=== PATIENT | female | born 1955 | race Two or more races ===

== ENCOUNTER 2017-12-22 14:39 | Emergency (ER) | payer OTHER ==
[~2017-12-22] VITALS: Ht 160 cm; Wt 67.1 kg
[2017-12-22] MEDS ORDERED: NKM (14:51)
[2017-12-22 15:22] VITALS: BP 153/83
--- NOTE | 2017-12-22 15:27 | Emergency Room Report ---
History of Present Illness General Chief Complaint: Eye Problems Source: Patient Present Illness HPI 62 yo female patient presents to ER complaining of pain on face x5 days. Reports was at work and was poked in the face by a stick while throwing away garbage. Reports was hit on side of nose near left eye. Reports swelling at site of injury. Reports taking Tylenol and icing eye with some reduction of swelling. Denies eye pain, FB sensation, loss of vision. Denies eye crusting. Denies fever, chest pain, SOB, vomiting. Denies pain with eye movement. Denies PHILIPPE, LOC. Denies bleeding or break in skin. Allergies: Coded Allergies: No Known Allergies (Unverified , 12/22/17) Patient History Past Medical History: see triage record Reviewed Nursing Documentation: PMH: Agreed; PSxH: Agreed Nursing Documentation-PMH Past Medical History: No Stated History Review of Systems All Other Systems: negative except mentioned in HPI Physical Exam Vital Signs Date Time Temp Pulse Resp B/P (MAP) Pulse Ox O2 Delivery O2 Flow Rate FiO2 12/22/17 14:43 98.3 86 16 153/83 95 Room Air 98.2 Sp02 EP Interpretation: reviewed, normal General Appearance: well appearing, no apparent distress, alert, GCS 15, non- toxic Head: normocephalic, atraumatic Eyes: bilateral eye normal inspection, bilateral eye PERRL, bilateral eye EOMI , bilateral eye other - no conjunctival injection ENT: hearing grossly normal, normal pharynx, no angioedema, normal voice, TMs + canals normal, uvula midline, moist mucus membranes, other - no blood in nasal cavity, no blue swollen mass, no drainage Neck: full range of motion Respiratory: lungs clear, normal breath sounds, no rhonchi, no respiratory distress, no accessory muscle use, no wheezing, speaking full sentences Cardiovascular #1: regular rate, rhythm, no edema Musculoskeletal: back normal, digits/nails normal, gait/station normal, normal range of motion, non-tender Neurologic: alert, oriented x3, responsive, motor strength/tone normal, sensory intact Psychiatric: mood/affect normal Skin: other - left eye, medial border adjacent to nasal bridge: ecchymosis, TTP , no kari with pressure Lymphatic: no adenopathy Medical Decision Making PA Attestation Dr. Martinez is my supervising Physician whom patient management has been discussed with. Diagnostic Impression: Primary Impression: Bruise of periocular tissue ER Course Pt. presents to the ED c/o bruising and swelling on the left side of face near eye and nose. Ddx considered but are not limited to periorbital cellulitis, fracture, contusion. Vital signs: are WNL, pt. is afebrile Patient has no signs of surrounding cellulitis, no pain with eye movement, does not require imaging at this time. Low suspicion for periorbital cellulitis See nurses report for [employer]. Followup with manager of environmental services for further testing and treatment. ER COURSE: No evidence of nasal fracture, nose midline. No blood seen in nasal cavity, epistaxis. Does not require imaging at this time. Patient denies complaints of eye pain, pain with eye movement, foreign body sensation, loss of vision. Patient does not require fluoresceins stain of eye at this time. Follow up with orientation and mobility specialist for onset of symptoms. Injury occurred at work. Completed Workmen's Compensation paperwork, patient requesting a few days off from work. Work note provided. Instructed to follow-up with job to receive information for referral to Workmen' s Compensation physician. Informed patient likely contusion. Continue to apply ice to reduce swelling. take Tylenol for pain symptoms. Patient reports understanding and agreement. DISCHARGE: Rx provided for Tylenol At this time pt. is stable for d/c to home. Patient is resting comfortably, in no acute distress, nontoxic appearing, talking and smiling without difficulty. Will provide printed patient care instructions, and any necessary prescriptions. Patient instructed to follow up with log deckman and discuss further follow up with ophthalmology and manager of environmental services. Care plan and follow up instructions have been discussed with the patient prior to discharge. Patient questions asked and answered. Patient reports understanding and agreement to treatment plan. ER precautions given. Patient instructed to return to ER immediately for any new or worsening of symptoms including but not limited to vision loss, fever, changes in vision. Last Vital Signs Date Time Temp Pulse Resp B/P (MAP) Pulse Ox O2 Delivery O2 Flow Rate FiO2 12/22/17 14:43 98.3 86 16 153/83 95 Room Air 98.2 Disposition: HOME, SELF-CARE Condition: Stable Scripts Acetaminophen* (TYLENOL EXTRA STRENGTH*) 500 Mg Tablet 500 MG ORAL Q8H PRN for Prn Headache/Temp > 101, #30 TAB 0 Refills Prov: Wan Gross 12/22/17 Patient Instructions: Eye Contusion Additional Instructions: Followup with primary care provider in 3 -5 days. Followup with orientation and mobility specialist. Take medications as directed. Patient questions asked and answered. ER precautions given, patient instructed to return to ER immediately for any new or worsening of symptoms. Wan Gross Dec 22, 2017 15:27
[2017-12-22] MEDS ORDERED: TYLENOL EXTRA500 MG ORAL (15:29)
[2017-12-22] MEDS ORDERED: Ketorolac 30mg Inj IM ONE (15:30)
[2017-12-22 15:57] VITALS: BP 150/83
== END 2017-12-22 16:00 | disposition home or self-care (01) ==
LOC: EMR 15:30
DX: S00.12XA Contusion of left eyelid and periocular area, initial encounter (principal); W22.8XXA Striking against or struck by other objects, initial encounter; Y93.E9 Activity, other interior property and clothing maintenance; Y92.9 Unspecified place or not applicable
CPT/HCPCS: 96372; 99283; J1885

== ENCOUNTER 2019-01-03 16:06 | Emergency (ER) | payer OTHER ==
[~2019-01-03] VITALS: Ht 157.5 cm; Wt 67.1 kg
[~2019-01-03 16:06] MED LIST: NKM; TYLENOL EXTRA500 MG ORAL
[2019-01-03 16:23] VITALS: BP 137/83
--- NOTE | 2019-01-03 16:45 | Emergency Room Report ---
History of Present Illness General Chief Complaint: Upper Extremity Injury Source: Patient Present Illness HPI 63-year-old female with no significant past medical history here complaining of pain in the right shoulder x1 day after trying to lift something heavy at work yesterday. Reports that she was trying to get something off of a shelf that was heavy and she immediately felt pain in the right shoulder now radiating to right hand and fingers. Rating the pain 6 out of 10 and has taken Tylenol with some relief. Patient range of motion is intact however she is in pain with flexion and extension of her shoulder. Is tingling and numbness. Denies chest pain, back pain, shortness of breath, palpitation, dizziness and headache. Denies fall on outstretched hand and denies fall of an object on her shoulder. Allergies: Coded Allergies: No Known Allergies (Unverified , 12/22/17) Patient History Past Medical History: see triage record Past Surgical History: unable to obtain Pertinent Family History: none Now: No Immunizations: UTD Reviewed Nursing Documentation: PMH: Agreed; PSxH: Agreed Nursing Documentation-PMH Past Medical History: No Stated History Review of Systems All Other Systems: negative except mentioned in HPI Physical Exam Vital Signs Date Time Temp Pulse Resp B/P (MAP) Pulse Ox O2 Delivery O2 Flow Rate FiO2 01/03/19 16:11 98.2 77 20 95 Room Air 01/03/19 16:23 137/83 Sp02 EP Interpretation: reviewed, normal General Appearance: normal inspection, well appearing, no apparent distress, alert Head: normocephalic, atraumatic Eyes: bilateral eye normal inspection, bilateral eye PERRL ENT: normal ENT inspection, normal pharynx Neck: normal inspection, full range of motion, supple Respiratory: normal inspection, lungs clear, no rhonchi, no wheezing Cardiovascular #1: normal inspection, regular rate, rhythm, no murmur Cardiovascular #2: 2+ radial (R), 2+ radial (L) Gastrointestinal: normal inspection, soft Genitourinary: no CVA tenderness Musculoskeletal: digits/nails normal, gait/station normal, non-tender, swelling - right shoulder, pain with cooper and epty can test unable to do drop arm test Neurologic: normal inspection, alert, oriented x3 Psychiatric: normal inspection, judgement/insight normal Skin: normal inspection, normal color, no rash, warm/dry, palpation normal Lymphatic: normal inspection, no adenopathy Medical Decision Making PA Attestation All my diagnosis and treatment plans were reviewed ad discussed with my supervising physician Dr. Kimball Diagnostic Impression: Primary Impression: Strain of right shoulder Additional Impression: Right shoulder tendonitis ER Course 63-year-old female with no significant past medical history here complaining of pain in the right shoulder x1 day after trying to lift something heavy at work yesterday. Reports that she was trying to get something off of a shelf that was heavy and she immediately felt pain in the right shoulder now radiating to right hand and fingers. Rating the pain 6 out of 10 and has taken Tylenol with some relief. Patient range of motion is intact however she is in pain with flexion and extension of her shoulder. Is tingling and numbness. Denies chest pain, back pain, shortness of breath, palpitation, dizziness and headache. Denies fall on outstretched hand and denies fall of an object on her shoulder. Ddx considered but are not limited to: right shoulder sprain, shoulder fracture , rotator cuff tear, right shoulder strain Vital signs: are WNL, pt. is afebrile H&PE are most consistent with: right shoulder strain, tendonitis ORDERS: shoulder and humerus xray, ibuprofen ED INTERVENTIONS: ibuprofen DISCHARGE: At this time pt. is stable for d/c to home. Will provide printed patient care instructions, and any necessary prescriptions. Care plan and follow up instructions have been discussed with the patient prior to discharge. follow up with primary Dr and ortho Other X-Ray Diagnostic Results Other X-Ray Diagnostic Results #1: X-Ray ordered: right shoulder # of Views/Limited Vs Complete: 2 View Indication: Pain EP Interpretation: Yes PA Xray: Interpretation reviewed, by supervising MD, and agrees with findings. Interpretation: no dislocation, no soft tissue swelling, no fractures Impression: No acute disease Electronically Signed by: narendra DE LA GARZA Scribe Text negative fracture, tendonitis noted Other X-Ray Diagnostic Results #2: X-Ray ordered: right humerus # of Views/Limited Vs Complete: 2 View Indication: Pain EP Interpretation: Yes PA Xray: Interpretation reviewed, by supervising MD, and agrees with findings. Interpretation: no dislocation, no soft tissue swelling, no fractures Impression: No acute disease Electronically Signed by: narendra DE LA GARZA Scribe Text no acute fracture Last Vital Signs Date Time Temp Pulse Resp B/P (MAP) Pulse Ox O2 Delivery O2 Flow Rate FiO2 01/03/19 16:23 98.2 77 20 137/83 95 Room Air Disposition: HOME, SELF-CARE Condition: Stable Scripts Ibuprofen* (MOTRIN*) 600 Mg Tablet 600 MG ORAL THREE TIMES A DAY, #30 TAB 0 Refills Prov: Narendra White 01/03/19 Patient Instructions: Bicipital Tendonitis Additional Instructions: Primary care provider for more time off from work and follow-up, avoid lifting heavy objects take medication as directed Narendra White January 03, 2019 16:45
--- NOTE | 2019-01-03 16:54 | Diagnostic Imaging Report ---
Indication: Trauma, pain Technique: 3 views of the right shoulder Comparison: none Findings: There is a small inferior acromial spur. There is some calcific tendinosis of the rotator cuff tendon. No acute fractures. No dislocations. The joint spaces are preserved. Impression: No acute process. Findings as noted
--- NOTE | 2019-01-03 16:56 | Diagnostic Imaging Report ---
Indications: Trauma, work injury, pain Technique: Two views of the right humerus Comparison: None Findings: No acute fractures. No dislocations. No radiopaque foreign body. There is a small olecranon spur Impression: No acute process
[2019-01-03] MEDS ORDERED: IBUPROFEN600 MG ORAL (17:05)
[2019-01-03 17:22] VITALS: BP 137/83
== END 2019-01-03 17:22 | disposition home or self-care (01) ==
LOC: EMR 16:42
DX: S46.911A Strain of unspecified muscle, fascia and tendon at shoulder and upper arm level, right arm, initial encounter (principal); M77.9 Enthesopathy, unspecified; X50.0XXA Overexertion from strenuous movement or load, initial encounter; Y93.9 Activity, unspecified; Y92.9 Unspecified place or not applicable
CPT/HCPCS: 99284